=== PATIENT | female | born 1945 | race Caucasian/White ===

== ENCOUNTER → 2020-02-26 | Outpatient (CLI) | payer MEDICARE, OTHER ==
[~2020-02-26] MED LIST: ACTONEL; ASPIRIN EC325 M1 PO; HYDROCHLOROTH12.5 MG PO; PERCOCET 5-3251 EACH PO; PRAVASTATIN SOD10 MG PO; PRINZIDE 20-121 EACH; ZANTAC 150MG T150 M1 PO; ZOFRAN ODT4 MG PO
--- NOTE | 2020-02-26 16:49 | CARDNUC ---
[place] [address] CARDIAC NUCLEAR IMAGING REPORT Name: DARRYL GREGG Room: [facility]#: [id number] Admission: 02/26/20 Attend Phys: Ciarra Smith Discharge: Date of : 49 Date of Service: 02/26/20 1649 Report #: [id number] THIS REPORT FOR: cc: Gracie Sloan MD, Molly MD Liston, Michael J. MD [facility] ~ APPROVED REPORT Study performed: 02/26/2020 09:16:42 Exam: Nuclear Stress Test Indication: Chest pain, Fatigue Patient Location: Out-Patient Stress Tech: Sera Núñez Stress Nurse: Karis Carvalho RN NM Tech:SHANTA Ndiaye Ht: 5 ft 2 in Wt: 119 lbs BSA: 1.53 m2 BMI: 21.76 Medical History Medical History: HTN, Hyperlipidemia Medications: asa 81, lisinopril Allergies: No known drug allergies Cardiac Risk Factors: Age, HTN, Hyperlipidemia, FHX of CAD Stress Test Details Stress Test: Exercise stress converted to pharmacologic stress due to failure to obtain a diagnostic stress test. Reason for pharmacologic stress test: changed from exercise stress test due to inability to reach target heart rate. HR Resting HR: 95 bpm Max Heart Rate (APMHR): 148 bpm Max HR Achieved: 158 bpm Target HR (85% APMHR): 125 bpm % of APMHR: 106 Recovery HR: 106 bpm BP Resting BP: 120/76 mmHg Max BP: 174/86 mmHg ECG Resting ECG: Sinus Rhythm [address] [address] CARDIAC NUCLEAR IMAGING REPORT Name: DARRYL GREGG Room: [facility]#: [id number] Admission: 02/26/20 Attend Phys: Ciarra Smith Discharge: Date of : 49 Date of Service: 02/26/20 1649 Report #: [id number] Stress ECG: Sinus Tachycardia ST Change: None Arrhythmia: None Recovery ECG: Sinus Rhythm Recovery ST Change: None Recovery Arrhythmia: None Clinical Reason for Termination: Completed protocol The patient tolerated Lexiscan infusion without significant cardiac symptoms. Nurse Comments pt unable to complete treadmill so switched to walking casper Stress ECG Conclusion The baseline twelve-lead EKG shows sinus rhythm with no significant ST segment or T wave abnormality. EKGs obtained during and post walking Lexiscan show sinus rhythm and sinus tachycardia with no significant ST segment changes when compared to baseline. There were no stress-induced arrhythmias. NM EXAM: Myocardial Perfusion REST/STRESS Imaging Protocol: Rest Tc-99m/Stress Tc-99m 1 day Resting Data Rest SPECT myocardial perfusion imaging was performed in supine position 30 minutes following the intravenous injection of 10.8 mCi of Tc-99m Sestamibi. Time of rest injection: 0750 Date: 02/26/2020 The images were gated to evaluate regional wall motion and calculate left ventricular ejection fraction. Administration Route: IV Administration Site: Right AC Pharmacologic Stress Pharmacologic stress test was performed by injecting Regadenoson 0.4 mg IV push followed by the intravenous injection of 31.5 mCi of Tc-99m Sestamibi. Time of stress injection: 0930 Date: 02/26/2020 Administration Route: IV Administration Site: Right AC Gated Stress SPECT was performed 40 minutes after stress injection. The images were gated to evaluate regional wall motion and calculate [place] [address] CARDIAC NUCLEAR IMAGING REPORT Name: DARRYL GREGG Room: [facility]#: [id number] Admission: 02/26/20 Attend Phys: Ciarra Smith Discharge: Date of : 49 Date of Service: 02/26/20 1649 Report #: [id number] Prone imaging was performed. Study Quality Study: Good Artifact: No artifact Study Data At rest, the left ventricular ejection fraction was 74%.. Post stress, the left ventricular ejection was 77%.. TID = 1.03. Perfusion Perfusion images obtained at rest and post walking Lexiscan stress show uniform uptake of the radioisotope throughout the myocardium. There were no defects to suggest infarct or ischemia. Wall Motion Normal left ventricular wall motion. Nuclear Conclusion ECG Findings: negative for ischemia Clinical Findings: negative for ischemia Nuclear Findings: negative for ischemia Exercise Capacity: not assessed Left Ventricular Function: normal Risk Study: low Myocardial perfusion images show no defect to suggest infarct or ischemia. Left ventricular systolic function is normal on gated studies. This is a low risk study. <Conclusion> The baseline twelve-lead EKG shows sinus rhythm with no significant ST segment or T wave abnormality. EKGs obtained during and post walking Lexiscan show sinus rhythm and sinus tachycardia with no significant ST segment changes when compared to baseline. There were no stress-induced arrhythmias. <ELECTRONICALLY SIGNED> By: Felipe Farris MD, FACC 02/26/209 48 48 Felipe Farris MD, FACC /INF
== END ==
LOC: M.NUC 02-24 13:00
PROVIDERS: ATTEND Internal Medicine
DX: R07.89 Other chest pain (principal); I10 Essential (primary) hypertension; Z82.49 Family history of ischemic heart disease and other diseases of the circulatory system